=== PATIENT | female | born 1960 ===

== ENCOUNTER 2017-11-27 15:38 | Emergency (ER) | payer SELFPAY ==
[2017-11-27 15:43] VITALS: TEMP 97.7; O2SAT 98
[2017-11-27] MEDS ORDERED: Sodium Chloride 0.9% 1,000 ML IV STA (16:35)
[2017-11-27] MEDS ORDERED: Morphine 4 MG/ML VIAL ONE (16:50)
[2017-11-27 16:53] LABS: BASO % 0.5 % (0.0-2.0); EOS % 0.4 % (0.0-4.0); HEMOGLOBIN 12.1 g/dL (12.0-16.0); LYMPH # 2.8 K/uL (1.0-4.3); LYMPH % 36.3 % (20.0-40.0); MEAN CELL VOLUME 94.2 fl (81.0-99.0); MEAN CORPUSCULAR HEMOGLOBIN 31.7 pg (27.0-31.0); MEAN CORPUSCULAR HGB CONC 33.6 g/dL (33.0-37.0); MEAN PLATELET VOLUME 6.5 fl (7.2-11.7); MONO # 0.5 K/uL (0.0-0.8); MONO % 7.1 % (0.0-10.0); NEUT # 4.3 K/uL (1.8-7.0); NEUT % 55.7 % (50.0-75.0); RBC 3.81 Mil/uL (3.80-5.20); RED CELL DISTRIBUTION WIDTH 13.6 % (11.5-14.5); WHITE BLOOD COUNT 7.7 K/uL (4.8-10.8)
[2017-11-27] MEDS ORDERED: Morphine 4 MG/ML VIAL IVP STA (16:57)
[2017-11-27 17:07] LABS: ALB/GLOB RATIO 1.1 (1.0-2.1); ALBUMIN 4.1 g/dL (3.5-5.0); ALT/SGPT 35 U/L (9-52); AST/SGOT 24 U/L (14-36); BLOOD UREA NITROGEN 15 mg/dl (7-17); CALCIUM 9.2 mg/dL (8.4-10.2); GFR AFRICAN-AMERICAN > 60; GFR NON-AFRICAN AMERICAN > 60; LIPASE 65 U/L (23-300)
[2017-11-27 17:10] LABS: INR 0.9 (0.9-1.2); PARTIAL THROMBOPLASTIN TIME 30.4 Seconds (25.6-37.1)
[2017-11-27 17:12] LABS: SQUAMOUS EPITHIAL < 1 /hpf (0-5); URINE BILIRUBIN NEGATIVE (NEGATIVE); URINE BLOOD SMALL (NEGATIVE); URINE CLARITY CLEAR (Clear); URINE COLOR YELLOW (YELLOW); URINE GLUCOSE (UA) NEG (Normal); URINE LEUKOCYTE ESTERASE NEG Leu/uL (Negative); URINE PROTEIN NEGATIVE (NEGATIVE); URINE UROBILINOGEN 0.2-1.0 mg/dL (0.2-1.0)
--- NOTE | 2017-11-27 17:12 | ED PDOC ---
HPI: General Adult Time Seen by Provider: 11/27/17 15:46 Chief Complaint (Nursing): Back Pain Chief Complaint (Provider): Back Pain History Per: Patient History/Exam Limitations: no limitations Current Symptoms Are (Timing): Still Present Additional Complaint(s): Patient reports that she fell forward 8 days ago and hit her left breast. Reports pain to the left breast with bruising pain to the left lower rib, which is worse with palpation. Otherwise (-) difficulty breathing, (-) headache, (-) dizziness. At that time she had no pain elsewhere aside from her L breast. Patient also complains of sudden onset of constant sharp pain to the left flank radiating to left groin, associated with nausea. Otherwise: (-) diarrhea, (-) fever, (-)chills, (-) melena, (-) hematochezia, (-) rash, (-) urinary symptoms. Denies history of kidney stones. Reports taking Motrin and Tylenol without improvement. Past Medical History Reviewed: Historical Data, Nursing Documentation, Vital Signs Vital Signs: Last Vital Signs Temp 97.7 F 11/27/17 15:40 Pulse 82 11/27/17 15:40 Resp 20 11/27/17 15:40 BP 149/78 11/27/17 15:40 Pulse Ox 98 11/27/17 19:01 - Medical History PMH: No Chronic Diseases Denies: Kidney Stones - Surgical History Surgical History: No Surg Hx - Family History Family History: States: Unknown Family Hx - Social History Current smoker - smoking cessation education provided: No Alcohol: None Drugs: Denies - Home Medications Home Medications: Ambulatory Orders Medication Instructions Recorded Meclizine HCl 12.5 mg PO TID 10/20/16 Acyclovir [Zovirax] 800 mg PO 5XD #35 tablet 11/27/17 traMADol [Ultram] 50 mg PO TID PRN #12 tab 11/27/17 - Allergies Allergies/Adverse Reactions: Allergies Allergy/AdvReac Type Severity Reaction Status Date / Time No Known Allergies Allergy Verified 11/27/17 15:40 Review of Systems ROS Statement: Except As Marked, All Systems Reviewed And Found Negative (As per HP, otherwise negative) Constitutional: Negative for: Fever Respiratory: Negative for: Other (difficulty breathing) Gastrointestinal: Positive for: Abdominal Pain (Left flank pain) Genitourinary Female: Negative for: Dysuria, Frequency, Incontinence, Hematuria Musculoskeletal: Positive for: Other (Left breast and rib pain) Skin: Negative for: Rash Neurological: Negative for: Dizziness, Other (loss of consciousness) Physical Exam - Reviewed Nursing Documentation Reviewed: Yes Vital Signs Reviewed: Yes - Physical Exam Comments: GENERAL APPEARANCE: Patient is awake, alert, oriented x 3, in moderate painful distress SKIN: Warm, dry; (-) cyanosis, (-) rash. EYES: (-) conjunctival pallor, (-) scleral icterus. ENMT: Mucous membranes are moist. NECK: (-) tenderness, (-) stiffness, (-) lymphadenopathy. CHEST: (+) small area of ecchymosis on left breast that is tender to touch, (+) tenderness to left lower anterior rib with no ecchymosis and palpable step off RESPIRATORY: (-) rales, (-) rhonchi, (-) wheezes; breath sounds equal bilaterally. HEART AND CARDIOVASCULAR: (-) irregularity; (-) murmur, (-) gallop. ABDOMEN AND GI: (-) distention. Bowel sounds active; (-) tenderness, (-) guarding, (-) rebound, (-) palpable masses, (-) CVA tenderness. BACK: (-) tenderness. EXTREMITIES: (-) deformity, (-) edema, (+) distal pulses. NEURO AND PSYCH: Mental status as above; (-) focal findings. - Laboratory Results Result Diagrams: 11/27/17 16:45 11/27/17 16:45 - ECG O2 Sat by Pulse Oximetry: 98 (RA) Pulse Ox Interpretation: Normal Medical Decision Making Medical Decision Making: Time: 16:35 Initial Impression: Rule out renal colic, consider herpes zoster Plan: CT abd & Pelvis w/o contrast CMP Lipase PTT Prothrombin time Morphine 4mg IV Sodium chloride 1L IV Zofran 4mg IVP Urine culture IV insertion Ribs X-ray Urinalysis Time: 18:08 Abdomen/Pelvis CT: LOWER THORAX: Unremarkable. LIVER: Unremarkable. No gross lesion or ductal dilatation. GALLBLADDER AND BILE DUCTS: Unremarkable. PANCREAS: Unremarkable. No gross lesion or ductal dilatation. SPLEEN: Unremarkable. ADRENALS: Unremarkable. No mass. KIDNEYS AND URETERS: Unremarkable. No hydronephrosis. No solid mass. VASCULATURE: Unremarkable. No aortic aneurysm. BOWEL: Constipation without fecal impaction or obstruction. APPENDIX: No abnormalities to suggest acute appendicitis. No right lower quadrant inflammatory processes identified. PERITONEUM: Unremarkable. No free fluid. No free air. LYMPH NODES: Unremarkable. No enlarged lymph nodes. BLADDER: Unremarkable. REPRODUCTIVE: Unremarkable. BONES: No acute fracture. OTHER FINDINGS: None. IMPRESSION: No significant or acute findings to account for/ related to the clinical presentation. Time: 18:11 Ribs X-ray : LEFT RIBS: No fracture or focal lesion visualized. LUNGS: Clear. PLEURA: No pneumothorax or pleural fluid. CARDIOVASCULAR: Normal sized heart. No pulmonary vascular congestion. OTHER FINDINGS: None. IMPRESSION: Unremarkable radiographs of the chest and left ribs. No left rib fracture. Labs reviewed, UA shows small blood, otherwise rest of the labs Lab, x-ray and CT results discussed the patient in great detail. On reevaluation patient is laying in bed comfortably in no acute distress. Patient reports improvement pain. Reports no nausea, vomiting or urinary symptoms at this time. On exam, abdomen remains soft with no tenderness, no CVA tenderness. Patient advised to look out for a rash that may interrupt which will be consistent with possible diagnosis of herpes zoster. Based on history, exam and diagnostic results plan will be for outpatient follow -up. Advised to follow up with primary care physician in 1-2 days without fail. Advised to take medication as prescribed - acyclovir - if a rash erupts. Return to the emergency room at any time for any new or worsening symptoms. Patient states she fully agrees with and understands discharge instructions. States that she agrees with the plan and disposition. Verbalized and repeated discharge instructions and plan. I have given the patient opportunity to ask any additional questions. Scribe Attestation: Documented by Tiffany Rachel acting as a scribe for Keren Saldivar PA-C, PA. BOB Scribe Attestation: All medical record entries made by the Scribe were at my direction and personally dictated by me. I have reviewed the chart and agree that the record accurately reflects my personal performance of the history, physical exam, medical decision making, and the department course for this patient. I have also personally directed, reviewed, and agree with the discharge instructions and disposition. Disposition - Clinical Impression Clinical Impression: Left flank pain - Patient ED Disposition Is Patient to be Admitted: No Counseled Patient/Family Regarding: Studies Performed, Diagnosis, Need For Followup, Rx Given - Disposition Disposition: Routine/Home Disposition Time: 19:15 Condition: IMPROVED Additional Instructions: Thank you for letting us take care of you today. You were treated for left flank pain, not really renal colic, consider herpes zoster. The emergency medical care you received today was directed at your acute symptoms. If you were prescribed any medication, please fill it and take as directed. It may take several days for your symptoms to resolve. Return to the Emergency Department if your symptoms worsen, do not improve, or if you have any other problems. Please contact your doctor in 2 days for re-evaluation and follow up. Bring any paperwork you were given at discharge with you along with any medications you are taking to your follow up visit. Our treatment cannot replace ongoing medical care by a primary care provider (PCP) outside of the emergency department. Thank you for allowing the [facility] team to be part of your care today. If you had an X-Ray or CT scan: A Radiologist will review the ED reading if any change in treatment is needed we will contact you. 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
--- NOTE | 2017-11-27 18:23 | CT ---
PROCEDURE: CT Abdomen and Pelvis without intravenous contrast HISTORY: Left flank pain. COMPARISON: None. TECHNIQUE: Unenhanced study. Neither oral nor intravenous contrast administered. Total exam DLP = 445.-3 mGy-cm. This CT exam was performed using one or more of the following dose reduction techniques: Automated exposure control, adjustment of the mA and/or kV according to patient size, and/or use of iterative reconstruction technique. FINDINGS: LOWER THORAX: Unremarkable. LIVER: Unremarkable. No gross lesion or ductal dilatation. GALLBLADDER AND BILE DUCTS: Unremarkable. PANCREAS: Unremarkable. No gross lesion or ductal dilatation. SPLEEN: Unremarkable. ADRENALS: Unremarkable. No mass. KIDNEYS AND URETERS: Unremarkable. No hydronephrosis. No solid mass. VASCULATURE: Unremarkable. No aortic aneurysm. BOWEL: Constipation without fecal impaction or obstruction. APPENDIX: No abnormalities to suggest acute appendicitis. No right lower quadrant inflammatory processes identified. PERITONEUM: Unremarkable. No free fluid. No free air. LYMPH NODES: Unremarkable. No enlarged lymph nodes. BLADDER: Unremarkable. REPRODUCTIVE: Unremarkable. BONES: No acute fracture. OTHER FINDINGS: None. IMPRESSION: No significant or acute findings to account for/ related to the clinical presentation. Additional benign and/or incidental findings described above.
--- NOTE | 2017-11-27 18:47 | RAD ---
PROCEDURE: Radiographs of the Chest and Left Ribs. HISTORY: trauma COMPARISON: 08/24/2017. TECHNIQUE: Frontal radiograph of the chest and multiple oblique radiographs of the left ribs were obtained. FINDINGS: LEFT RIBS: No fracture or focal lesion visualized. LUNGS: Clear. PLEURA: No pneumothorax or pleural fluid. CARDIOVASCULAR: Normal sized heart. No pulmonary vascular congestion. OTHER FINDINGS: None. IMPRESSION: Unremarkable radiographs of the chest and left ribs. No left rib fracture.
[2017-11-27 19:33] VITALS: BP 134/71; PULSE 59; RESP 18
== END 2017-11-27 19:43 | disposition home or self-care (01) ==
LOC: H.ER 15:38
DX: R10.9 Unspecified abdominal pain (principal); W19.XXXA Unspecified fall, initial encounter
CPT/HCPCS: 71101; 74176; 80053; 81003; 83690; 85025; 85610; 85730; 87086; 96361; 96374; 96375; 99283; J2270; J2405; J7040

== ENCOUNTER 2017-12-02 10:31 | Emergency (ER) | payer SELFPAY ==
[2017-12-02 10:39] VITALS: BP 120/78; PULSE 85; TEMP 98; O2SAT 97
[2017-12-02 10:40] VITALS: BMI 25.7
--- NOTE | 2017-12-02 13:20 | RAD ---
PROCEDURE: Radiographs of the Lumbar Spine. HISTORY: pain COMPARISON: Correlation is made to CT scan of the abdomen pelvis dated 11/27/2017. FINDINGS: BONES: Normal alignment. No listhesis. No fracture. Anterior endplate osteophytic changes. DISC SPACES: Mild multilevel narrowing. OTHER FINDINGS: None. IMPRESSION: No acute fracture. Multilevel degenerative changes.
--- NOTE | 2017-12-02 13:22 | RAD ---
PROCEDURE: Left Hip X-ray Radiographs. HISTORY: pain COMPARISON: None. FINDINGS: BONES: No acute fracture. JOINTS: Narrowing of both hips. SOFT TISSUES: Gluteal soft tissue granulomas. OTHER FINDINGS: None. IMPRESSION: No demonstrated fracture or dislocation.
--- NOTE | 2017-12-02 13:25 | ED PDOC ---
Arrival/HPI - General Chief Complaint: Hip Pain Time Seen by Provider: 12/02/17 11:21 Historian: Patient - History of Present Illness Narrative History of Present Illness (Text): 57 yo F reports pain in the L mid-lower back radiating to left hip and buttock, beginning 2 weeks ago. Otherwise: (-) trauma or injury, (-) hematuria or dysuria, (-) fever or chills, (-) abdominal pain, (-) paresthesia, (-) weakness , (-) bowel / bladder incontinence. Past Medical History - Renal Hx Kidney Stones: No - Psychiatric Hx Emotional Abuse: No Hx Physical Abuse: No Hx Substance Use: No - Anesthesia Hx Anesthesia: No - Suicidal Assessment Feels Threatened In Home Enviroment: No Family/Social History - Physician Review Nursing Documentation Reviewed: Yes Family/Social History: Unknown Family HX Smoking Status: Never Smoked Hx Alcohol Use: No Hx Substance Use: No Allergies/Home Meds Allergies/Adverse Reactions: Allergies No Known Allergies Allergy (Verified 11/27/17 15:40) Home Medications: Home Meds Medication Instructions Recorded Confirmed Meclizine HCl 12.5 mg PO TID 10/20/16 10/20/16 Review of Systems - Physician Review All systems were reviewed & negative as marked: Yes - Review of Systems Constitutional: absent: Fevers Genitourinary Female: Normal. absent: Dysuria, Hematuria Musculoskeletal: Back Pain (mid-lower radiating to left hip). absent: Other ( trauma or injury) Physical Exam - Physical Exam Narrative Physical Exam (Text): GENERAL APPEARANCE: Patient is awake, alert, oriented x 3, in mild painful distress. SKIN: Warm, dry; (-) cyanosis. EYES: (-) conjunctival pallor. ENMT: Mucous membranes moist. NECK: (-) tenderness, (-) stiffness, (-) lymphadenopathy. CHEST AND RESPIRATORY: (-) rales, (-) rhonchi, (-) wheezes; breath sounds equal bilaterally. HEART AND CARDIOVASCULAR: (-) irregularity; (-) murmur, (-) gallop. ABDOMEN AND GI: Soft; (-) tenderness; (-) palpable mass. BACK: (+) point tenderness on left lower-mid back, (-) midline or hip tenderness, (-) direct bony tenderness, (-) deformity. Straight leg raising (- ) bilaterally. EXTREMITIES: (+) normal ROM (-) deformity. Distal pulses good bilaterally. NEURO AND PSYCH: Mental status as above. Intact sensation bilaterally; normal strength in extension of the knees, plantar and dorsiflexion of the toes. Ambulating well. Vital Signs Temp Pulse BP Pulse Ox 12/02/17 10:39 98 F 85 120/78 97 Medical Decision Making ED Course and Treatment: Previous medical records reviewed, patient last seen in this ED on 11/27/17 for L flank pain, labs and UA done, which were wnl. During that visit, the patient also had a CT A/P to r/u renal colic, her CT was negative. Differential diagnosis at that time included shingles, she was Rx tramadol and acyclovir and advised to monitor her symptoms and see if she develops a rash. Impression: Sciatica Plan: - XR L spine - XR L hip / pelvis - Toradol IM XR L spine : no acute abnormality, + DJD, as read by PA XR L hip : no fracture, no acute abnormality, as read by ODETTE Time: 1315 --XR results d/w the patient. On re-evaluation, patient reports improvement of pain, denies any other complaints. Previous labs, UA and CT findings from the last visit d/w the patient. She states that she never filled the Rxs given to her on her last visit here. She has not been able to f/u with pmd either. She states she has a f/u appointment on December 18. On exam, patient remains AAOx3, in no acute distress. Repeat neuro exam shows no focal findings. Diagnosis of possible sciatica d/w the patient --Advised to follow up with primary care physician in 1-2 days without fail. Advised to take medication as prescribed. Return to the emergency room at any time for any new or worsening symptoms. --Patient states she fully agrees with and understands discharge instructions. States that she agrees with the plan and disposition. Verbalized and repeated discharge instructions and plan. I have given the patient opportunity to ask any additional questions. Scribe Attestation: Documented by Samia Smith, acting as a scribe for Keren Saldivar PA-C. Provider Scribe Attestation: All medical record entries made by the Scribe were at my direction and personally dictated by me. I have reviewed the chart and agree that the record accurately reflects my personal performance of the history, physical exam, medical decision making, and the department course for this patient. I have also personally directed, reviewed, and agree with the discharge instructions and disposition. 12/02/17 18:35 - RAD Interpretation Radiology Orders: 12/02/17 12:10 HIP MIN 2V W/ PELVIS LT [RAD] Stat LS SPINE AP/LAT [RAD] Stat - Medication Orders Current Medication Orders: Discontinued Medications Ketorolac Tromethamine (Toradol) 60 mg IM STAT STA Stop: 12/02/17 12:11 Last Admin: 12/02/17 12:15 Dose: 60 mg MAR Pain Assessment Document 12/02/17 12:15 CS (Rec: 12/02/17 12:16 CS [id number]) Pain Reassessment Is this a pain reassessment? No Sleep Is patient sleeping during reassessment? 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 Disposition/Present on Arrival - Present on Arrival Any Indicators Present on Arrival: No History of DVT/PE: No History of Uncontrolled Diabetes: No Urinary Catheter: No History of Decub. Ulcer: No - Disposition Have Diagnosis and Disposition been Completed?: Yes Diagnosis: Sciatica, Back pain Disposition: HOME/ ROUTINE Disposition Time: 13:15 Patient Plan: Discharge Condition: STABLE Discharge Instructions (ExitCare): Low Back Pain in Adults, Sciatica (DC) Print Language: [place] Additional Instructions: Thank you for letting us take care of you today. You were treated for back pain , consider sciatica. The emergency medical care you received today was directed at your acute symptoms. If you were prescribed any medication, please fill it and take as directed. It may take several days for your symptoms to resolve. Return to the Emergency Department if your symptoms worsen, do not improve, or if you have any other problems. Please contact your doctor in 2 days for re-evaluation and follow up / or call one of the physicians/clinics you have been referred to that are listed on the Patient Visit Information form that is included in your discharge packet. Bring any paperwork you were given at discharge with you along with any medications you are taking to your follow up visit. Our treatment cannot replace ongoing medical care by a primary care provider (PCP) outside of the emergency department. Thank you for allowing the [facility] team to be part of your care today. Prescriptions: Cyclobenzaprine [Cyclobenzaprine HCl] 10 mg PO TID PRN #15 tab PRN Reason: Pain, Moderate (4-7) Meloxicam [Mobic] 15 mg PO DAILY #20 tab Referrals: [facility] [Outside] Forms: [employer] (Vincentian)
== END 2017-12-02 14:12 | disposition home or self-care (01) ==
LOC: H.ER 10:31
DX: M54.30 Sciatica, unspecified side (principal); M54.5 Low back pain
CPT/HCPCS: 72100; 73502; 96372; 99283; J1885